=== PATIENT | female | born 1935 | race Caucasian/White ===

== ENCOUNTER → 2017-06-14 | Outpatient (CLI) | payer MEDICARE | LOC: RAD 09:27 | DX: Z12.31 Encounter for screening mammogram for malignant neoplasm of breast (principal) | CPT/HCPCS: 77067 ==

== ENCOUNTER → 2018-03-26 | Outpatient (CLI) | payer MEDICARE ==
[~2018-03-26] MED LIST: AMLO5TAB2; ATOR20TA66; DICL50TA4; ESOM40CA52; HTN PO; IRBE300T18; OMEP20TA33 PO; OMEP40CA36 PO; SULF-222; VALS320T15
== END ==
LOC: LAB 13:18
PROVIDERS: ATTEND Family Medicine
DX: N39.0 Urinary tract infection, site not specified (principal)
CPT/HCPCS: 87077; 87088; 87186

== ENCOUNTER → 2018-03-27 | Outpatient (CLI) | payer MEDICARE ==
[2018-03-27 15:45] LABS: BASOPHILS % (AUTO) 0 % (0-10); EOSINOPHILS # (AUTO) 0.3 10^3/uL (0.0-0.3); EOSINOPHILS % (AUTO) 3 % (0-10); HEMATOCRIT 39 % (35-52); LYMPHOCYTES # (AUTO) 3.2 X 10^3 (1.0-4.0); LYMPHOCYTES % (AUTO) 34 % (12-44); MEAN CORPUSCULAR HEMOGLOBIN 30 PG (25-34); MEAN CORPUSCULAR HGB CONC 34 G/DL (32-36); MEAN CORPUSCULAR VOLUME 90 FL (80-99); MEAN PLATELET VOLUME 9.8 FL (7.4-10.4); MONOCYTES # (AUTO) 0.5 X 10^3 (0.0-1.0); MONOCYTES % (AUTO) 6 % (0-12); NEUTROPHILS # (AUTO) 5.3 X 10^3 (1.8-7.8); NEUTROPHILS % (AUTO) 56 % (42-75); PLATELET COUNT 310 10^3/uL (130-400); RED CELL DISTRIBUTION WIDTH 12.7 % (10.0-14.5); WHITE BLOOD COUNT 9.4 10^3/uL (4.3-11.0)
[2018-03-27 16:14] LABS: ALANINE AMINOTRANSFERASE 27 U/L (0-55); ALBUMIN 4.3 GM/DL (3.2-4.5); ALKALINE PHOSPHATASE 77 U/L (40-136); BILIRUBIN,TOTAL 0.7 MG/DL (0.1-1.0); BUN/CREATININE RATIO 25; CALCIUM 9.5 MG/DL (8.5-10.1); CARBON DIOXIDE 25 MMOL/L (21-32); CHLORIDE 110 MMOL/L (98-107); CREATININE SERUM 0.72 MG/DL (0.60-1.30); GFR ESTIMATED > 60; GLUCOSE 100 MG/DL (70-105); POTASSIUM 3.6 MMOL/L (3.6-5.0); SODIUM 145 MMOL/L (135-145); TOTAL PROTEIN 6.6 GM/DL (6.4-8.2)
== END ==
LOC: LAB 15:28
PROVIDERS: ATTEND Family Medicine
DX: Z13.811 Encounter for screening for lower gastrointestinal disorder (principal); I10 Essential (primary) hypertension
CPT/HCPCS: 36415; 80053; 85025

== ENCOUNTER 2018-03-30 07:33 | Emergency (ER) | payer MEDICARE ==
[~2018-03-30] VITALS: Ht 152.4 cm; Wt 72.6 kg
[2018-03-30] MEDS ORDERED: OMEP20TA33 PO (08:13)
[2018-03-30] MEDS ORDERED: HTN PO (08:13)
[2018-03-30] MEDS ORDERED: ATOR20TA66 (08:16)
[2018-03-30] MEDS ORDERED: VALS320T15 (08:16)
[2018-03-30] MEDS ORDERED: AMLO5TAB2 (08:16)
[2018-03-30] MEDS ORDERED: SULF-222 (08:16)
[2018-03-30] MEDS ORDERED: IRBE300T18 (08:16)
[2018-03-30] MEDS ORDERED: ESOM40CA52 (08:16)
[2018-03-30] MEDS ORDERED: DICL50TA4 (08:16)
[2018-03-30 08:37] LABS: BASOPHILS # (AUTO) 0.1 10^3/uL (0.0-0.1); BASOPHILS % (AUTO) 1 % (0-10); EOSINOPHILS # (AUTO) 0.4 10^3/uL (0.0-0.3); EOSINOPHILS % (AUTO) 4 % (0-10); HEMATOCRIT 42 % (35-52); LYMPHOCYTES # (AUTO) 2.5 X 10^3 (1.0-4.0); LYMPHOCYTES % (AUTO) 29 % (12-44); MEAN CORPUSCULAR HEMOGLOBIN 30 PG (25-34); MEAN CORPUSCULAR HGB CONC 34 G/DL (32-36); MEAN CORPUSCULAR VOLUME 90 FL (80-99); MEAN PLATELET VOLUME 10.5 FL (7.4-10.4); MONOCYTES # (AUTO) 0.6 X 10^3 (0.0-1.0); MONOCYTES % (AUTO) 7 % (0-12); NEUTROPHILS # (AUTO) 5.1 X 10^3 (1.8-7.8); NEUTROPHILS % (AUTO) 59 % (42-75); PLATELET COUNT 331 10^3/uL (130-400); RED BLOOD COUNT 4.65 10^6/uL (4.35-5.85); WHITE BLOOD COUNT 8.6 10^3/uL (4.3-11.0)
[2018-03-30 08:39] LABS: PROTHROMBIN TIME PATIENT 12.9 SEC (12.2-14.7)
[2018-03-30 08:48] LABS: ALANINE AMINOTRANSFERASE 29 U/L (0-55); ALBUMIN 4.4 GM/DL (3.2-4.5); ALKALINE PHOSPHATASE 81 U/L (40-136); BILIRUBIN,TOTAL 0.8 MG/DL (0.1-1.0); BUN/CREATININE RATIO 21; CALCIUM 9.1 MG/DL (8.5-10.1); CARBON DIOXIDE 20 MMOL/L (21-32); CHLORIDE 110 MMOL/L (98-107); CREATININE SERUM 0.73 MG/DL (0.60-1.30); GFR ESTIMATED > 60; GLUCOSE 98 MG/DL (70-105); POTASSIUM 3.5 MMOL/L (3.6-5.0); SODIUM 142 MMOL/L (135-145); TOTAL PROTEIN 6.7 GM/DL (6.4-8.2)
--- NOTE | 2018-03-30 08:49 | ED GI ---
General Chief Complaint: Rect Problems Stated Complaint: BLEEDING WHEN HAVING BM Nursing Triage Note: PT AMBULATES TO ROOM 7 PT CO OF RECTAL BLEEDING SINCE SATURDAY, PT WAS SEEN SATURDAY BY DR BULL AND HAD LABS DRAWN. PT STATES SEEMS LIKE HAD BLEEDING SINCE SATURDAY BUT CLOTS NOTED THIS AM. PT DENIES ABD PAIN. PT RESIDES IN [place] BUT HAS HOME HERE IN [place] THAT VISITS Sepsis Screen: No Definite Risk Source of Information: Patient, Family ([id number]) Exam Limitations: No Limitations History of Present Illness Date Seen by Provider: Mar 30, 2018 Time Seen by Provider: 08:38 Initial Comments Patient presents to ER by private conveyance with her [id number] chief complaint that this morning she was having several blood clots past when she had a bowel movement. She's been having this for the past week or so so she didn 't go to a local physician Dr. Bull and he was going to set her up with Dr. Hauser, General Surgery for colonoscopy. She actually is from [place] and is just up here visiting. Should her primary care doctor in [place] had asked for some other labs. She also was ultimately found to have a UTI and her visit with Dr. Bull so she is on antibiotics for that. She is not having any chest pain, shortness of breath, weakness, dizziness, fatigue, passing out or near-syncope. She is not on blood thinners, aspirin or Plavix. She has had colonoscopies in the past and was not found to have diverticulosis but she did have polyps in the past. She has not had any blood transfusions. Allergies and Home Medications Allergies Coded Allergies: No Known Drug Allergies (Unverified , 03/30/18) Patient Home Medication List Home Medication List Reviewed: Yes Review of Systems Constitutional: No chills, No diaphoresis, No fever, No malaise, No weakness EENTM: No Blurred Vision, No Double Vision Respiratory: Denies Cough, Denies Shortness of Air Cardiovascular: Denies Chest Pain, Denies Edema Gastrointestinal: Denies Abdomen Distended, Denies Abdominal Pain, Denies Constipated, Denies Diarrhea, Denies Difficulty Swallowing, Denies Nausea, Denies Poor Fluid Intake; Rectal Bleeding Genitourinary: Denies Burning, Denies Discharge Musculoskeletal: No back pain, No joint pain Past [id number]-Crsilr Hx Patient Social History Alcohol Use: Denies Use Recreational Drug Use: No Smoking Status: Never a Smoker Recent Foreign Travel: No Contact w/Someone Who Travel: No Recent Infectious Disease Expo: No Recent Hopitalizations: No Physical Abuse: No Sexual Abuse: No Seasonal Allergies Seasonal Allergies: No Past Medical History Surgeries: Yes (L ELBOW SURG) Bladder Surgery, Hysterectomy, Orthopedic Respiratory: No Cardiac: Yes Hypertension 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 oz. [id number]; BMI Method:Stated General Appearance: WD/WN, no apparent distress HEENT: PERRL/EOMI, pharynx normal Neck: non-tender, normal inspection Respiratory: no respiratory distress, no accessory muscle use Cardiovascular: normal peripheral pulses, regular rate, rhythm Gastrointestinal: normal bowel sounds, non tender, soft, no organomegaly Genital/Rectal: normal rectal exam (no masses palpable), normal rectal tone, heme positive stool; No tenderness Extremities: normal range of motion, normal capillary refill Neurologic/Psychiatric: alert, normal mood/affect, oriented x 3 Skin: normal color, warm/dry Progress/Results/Core Measures Results/Orders Lab Results Laboratory Tests Test 03/30/18 08:02 Range/Units White Blood Count 8.6 4.3-11.0 10^3/uL Red Blood Count 4.65 4.35-5.85 10^6/uL Hemoglobin 14.0 11.5-16.0 G/DL Hematocrit 42 35-52 % Mean Corpuscular Volume 90 80-99 FL Mean Corpuscular Hemoglobin 30 25-34 PG Mean Corpuscular Hemoglobin Concent 34 32-36 G/DL Red Cell Distribution Width 13.0 10.0-14.5 % Platelet Count 331 130-400 10^3/uL Mean Platelet Volume 10.5 H 7.4-10.4 FL Neutrophils (%) (Auto) 59 42-75 % Lymphocytes (%) (Auto) 29 12-44 % Monocytes (%) (Auto) 7 0-12 % Eosinophils (%) (Auto) 4 0-10 % Basophils (%) (Auto) 1 0-10 % Neutrophils # (Auto) 5.1 1.8-7.8 X 10^3 Lymphocytes # (Auto) 2.5 1.0-4.0 X 10^3 Monocytes # (Auto) 0.6 0.0-1.0 X 10^3 Eosinophils # (Auto) 0.4 H 0.0-0.3 10^3/uL Basophils # (Auto) 0.1 0.0-0.1 10^3/uL Prothrombin Time 12.9 12.2-14.7 SEC INR Comment 1.0 0.8-1.4 Activated Partial Thromboplast Time 31 24-35 SEC Sodium Level 142 135-145 MMOL/L Potassium Level 3.5 L 3.6-5.0 MMOL/L Chloride Level 110 H 98-107 MMOL/L Carbon Dioxide Level 20 L 21-32 MMOL/L Anion Gap 12 5-14 MMOL/L Blood Urea Nitrogen 15 7-18 MG/DL Creatinine 0.73 0.60-1.30 MG/DL Estimat Glomerular Filtration Rate > 60 BUN/Creatinine Ratio 21 Glucose Level 98 70-105 MG/DL Calcium Level 9.1 8.5-10.1 MG/DL Total Bilirubin 0.8 0.1-1.0 MG/DL Aspartate Amino Transf (AST/SGOT) 21 5-34 U/L Alanine Aminotransferase (ALT/SGPT) 29 0-55 U/L Alkaline Phosphatase 81 40-136 U/L Total Protein 6.7 6.4-8.2 GM/DL Albumin 4.4 3.2-4.5 GM/DL My Orders Orders - MICK CONTRERAS Cbc With Automated Diff (03/30/18 08:28) Comprehensive Metabolic Panel (03/30/18 08:28) Protime With Inr (03/30/18 08:29) Partial Thromboplastin Time (03/30/18 08:29) Vital Signs/I&O 03/30/18 07:54 Temp 98.0 Pulse 82 Resp 18 B/P (MAP) 188/72 (110) Pulse Ox 98 Blood Pressure Mean: 110 Progress Progress Note #1: Time: 08:49 Progress Note She just had lab a couple days ago so we'll compare her CBC to then. If there is no change in her hemoglobin significantly then we'll have her continue follow -up with Dr. Hauser outpatient. Otherwise we'll discuss doing a more urgent colonoscopy if she is needing a transfusion. Progress Note #2: Time: 09:32 Progress Note The patient's hemoglobin is 14 which is similar to the hemoglobin of 13 from 2 days ago. It would be okay to have her follow-up in the clinic tomorrow at her scheduled appointment at [address] Bull to get a colonoscopy set up with Dr. Hauser. We have discussed this with her and she is okay with this. He put her on an antacid until after the colonoscopy. Departure Impression Primary Impression: Rectal bleeding Disposition: HOME, SELF-CARE Condition: Stable Departure-Patient Inst. Decision time for Depature: 09:33 Referrals: ALLEN BULL,LOCAL PHYSICIAN (PCP) Primary Care Physician Patient Instructions: Bloody Stools, Adult (DC) Add. 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 Return to the ER to begin to have chest pain, shortness of breath, weakness or other worrisome symptoms. Keep your appointment tomorrow afternoon with Dr. Bull to get set up with Dr. Hauser for colonoscopy. All discharge instructions reviewed with patient and/or family. Voiced understanding. Scripts Omeprazole (Omeprazole) 40 Mg Capsule. 40 MG PO DAILY for 14 Days, #14 CAP 0 Refills Prov: MCIK CONTRERAS 03/30/18 Copy Copies To 1: ALLEN BULL TITUS J Mar 30, 2018 08:49
[2018-03-30] MEDS ORDERED: OMEP40CA36 PO (09:36)
[2018-03-30 09:44] VITALS: BP 188/72
== END 2018-03-30 09:47 | disposition home or self-care (01) ==
LOC: EDUNIT# 07:33 → ER 07:35
DX: K62.5 Hemorrhage of anus and rectum (principal); I10 Essential (primary) hypertension; Z90.710 Acquired absence of both cervix and uterus
CPT/HCPCS: 36415; 80053; 85025; 85610; 85730

== ENCOUNTER 2018-04-03 05:49 | Outpatient (CLI) | payer MEDICARE ==
[~2018-04-03] VITALS: Ht 152.4 cm; Wt 72.6 kg
== END 2018-04-03 14:03 | disposition home or self-care (01) ==
LOC: PREOP 05:49
PROVIDERS: ATTEND Surgery
DX: Z01.818 Encounter for other preprocedural examination (principal); K92.1 Melena

== ENCOUNTER 2018-04-08 11:59 | Day surgery (SDC) | payer MEDICARE ==
[~2018-04-08] VITALS: Ht 152.4 cm; Wt 72.6 kg
[2018-04-08] MEDS ORDERED: LACTATED RINGERS 1,000 ML IV ONE (12:09)
[2018-04-08] MEDS ORDERED: LACTATED RINGERS 1,000 ML IV STA (12:14)
[2018-04-08 12:25] VITALS: BP 193/80
--- NOTE | 2018-04-08 12:33 | Progress Note-Pre Operative ---
Pre-Operative Progress Note H&P Reviewed The H&P was reviewed, patient examined and no changes noted. Date Seen by Provider: Apr 08, 2018 Time Seen by Provider: 12:33 Date H&P Reviewed: Apr 08, 2018 Time H&P Reviewed: 12:33 Pre-Operative Diagnosis: blood in stools TREY DAS DO Apr 08, 2018 12:33
[2018-04-08] MEDS ORDERED: PROPOFOL INJECTION 50 ML IV ONE (12:54)
--- NOTE | 2018-04-08 13:27 | Progress Note-Post Operative ---
Post-Operative Progess Note Surgeon (s)/Circuit Board Repair Technician (s) Surgeon TREY DAS DO Circuit Board Repair Technician: na Pre-Operative Diagnosis blood in stools Post-Operative Diagnosis diverticulosis, internal hemorrhoids Procedure & Operative Findings Date of Procedure 04/08/18 Procedure Performed/Findings colonoscopy Anesthesia Type per beach lifeguard Estimated Blood Loss Estimated blood loss (mL): none Specimens/Packing Specimens Removed na TREY DAS DO Apr 08, 2018 13:27
--- NOTE | 2018-04-08 13:31 | Discharge Inst-Simple/Standard ---
Discharge Inst-Standard Patient Instructions/Follow Up Plan of Care/Instructions/FU: Follow up on as needed basis, if you have more bleeding be seen at that time with Dr. Hoover. High fiber diet. Activity as Tolerated: Yes Discharge Diet: Regular Diet (high fiber) TREY HOOVER DO Apr 08, 2018 13:31
--- NOTE | 2018-04-08 13:52 | Anesthesia-General Post-Op ---
MAC Patient Condition Mental Status/LOC: Same as Preop Cardiovascular: Satisfactory Nausea/Vomiting: Absent Respiratory: Satisfactory Pain: Controlled Complications: Absent Post Op Complications Complications None Follow Up Care/Instructions Patient Instructions None needed. Anesthesiology Discharge Order Discharge Order Patient is doing well, no complaints, stable vital signs, no apparent adverse anesthesia problems. No complications reported per nursing. DYLAN ALBRECHT CRNA Apr 08, 2018 13:52
[2018-04-08 14:00] VITALS: BP 169/78
[2018-04-08 14:30] VITALS: BP 163/71
[2018-04-08 14:35] VITALS: BP 163/71
--- NOTE | 2018-04-08 23:04 | OPERATIVE REPORT ---
DATE OF SERVICE: 04/08/2018 PREOPERATIVE DIAGNOSIS: Blood in stools. POSTOPERATIVE DIAGNOSIS: Diverticulosis, internal hemorrhoids. PROCEDURE: Colonoscopy. SURGEON: Trey Hoover DO. ANESTHESIA: Per CHEMICAL UNIT OPERATOR. ESTIMATED BLOOD LOSS: None. COMPLICATIONS: None. INDICATIONS: The patient is an 82-year-old female who was having some blood in the stools. She understands risks and benefits of procedure and wished to proceed with procedure. Consent was signed on the chart. DESCRIPTION OF PROCEDURE: The patient was taken to the endoscopy suite, placed in left lateral recumbent position. Timeout was performed. Digital rectal exam was performed. There were no palpable polyps, masses or ulcerations. Some hemorrhoidal disease present. Scope was inserted in the rectum and advanced all the way to the cecum with minimal difficulty. Prep was adequate. There were no polyps, masses or ulcerations in the cecum, ascending, transverse, descending colon. Within the sigmoid colon, moderate amount of diverticulosis present. There were no polyps, masses or ulcerations visualized. Scope was then continued to be withdrawn to the rectum, where it was also retroflexed noting internal hemorrhoids. Scope was returned to its normal position, slowly withdrawn until completely removed, noting no other pathology. The patient tolerated the procedure well without any complications. She was taken to recovery room in stable condition. RECOMMENDATIONS: The patient recommended high fiber diet. If she has any return of bleeding, she should be reevaluated at that time by myself. I did not find any source of bleeding, which could be a diverticular bleed or from hemorrhoids. The patient can follow up on as needed basis. Job ID: [id number] DocumentID: [id number] Dictated Date: 04/08/2018 13:33:27 Wine Master Date: 04/08/2018 23:04:14 Dictated By: TREY HOOVER DO
== END 2018-04-08 14:35 | disposition home or self-care (01) ==
LOC: ENDO 11:59
PROVIDERS: ATTEND Surgery
DX: K62.5 Hemorrhage of anus and rectum (principal); K64.8 Other hemorrhoids; K57.30 Diverticulosis of large intestine without perforation or abscess without bleeding; I10 Essential (primary) hypertension; K21.9 Gastro-esophageal reflux disease without esophagitis; Z68.31 Body mass index [BMI] 31.0-31.9, adult